=== PATIENT | male | born 1980 | race American Indian/Alaskan Native ===

== ENCOUNTER 2018-07-07 21:58 | Emergency (ER) | payer SELFPAY ==
[2018-07-07 22:28] VITALS: BP 110/87
--- NOTE | 2018-07-08 00:42 | Emergency Department Report ---
ED Back Pain/Injury HPI - General Chief Complaint: Back Pain/Injury Stated Complaint: BACK PAIN Time Seen by Provider: 07/08/18 00:41 Source: patient Limitations: No Limitations - History of Present Illness Initial Comments: Patient is a 38-year-old -[place] male who states he hurt his back 2 days ago at work bending and lifting heavy boxes complains of 5/10 back spasms there is no numbness no tingling or paralysis no loss or decrease in bowel or bladder function patient is ambulatory however prolonged standing exacerbates pain pain is described as spasms patient has not attempted [id number] NSAIDs or pain medications for back MD Complaint: back pain, back injury Onset/Timin -: days(s) Similar Symptoms Previously: Yes Place: work Radiation: none Severity: moderate Severity scale (0 -10): 5 Quality: aching, other (spasms ) Consistency: intermittent Improves With: other (rest ) Worsens With: movement, other (bending twisting proloned sitting ) Context: turning/twisting, bending, other (moving boxes at work ) Associated Symptoms: denies: weakness, numbness, difficulty urinating, incontinence, constipation - Related Data Previous Rx's Medication Instructions Recorded Last Taken Type Cyclobenzaprine [Flexeril] 10 mg PO TID PRN #30 tablet 07/08/18 Unknown Rx Menthol/Camphor [[place] [facility] 1 applicatio TP QID PRN #1 tube 07/08/18 Unknown Rx Ointment] Naproxen 500 mg PO BID PRN #30 tablet 07/08/18 Unknown Rx Allergies Allergy/AdvReac Type Severity Reaction Status Date / Time No Known Allergies Allergy Unverified 07/07/18 22:29 ED Review of Systems ROS: Stated complaint: BACK PAIN Other details as noted in HPI Constitutional: denies: chills, fever Eyes: denies: eye pain, eye discharge, vision change ENT: denies: ear pain, throat pain Respiratory: denies: cough, shortness of breath, wheezing Cardiovascular: denies: chest pain, palpitations Endocrine: no symptoms reported Gastrointestinal: denies: abdominal pain, nausea, diarrhea Genitourinary: denies: urgency, dysuria Musculoskeletal: back pain. denies: joint swelling, arthralgia, myalgia Skin: denies: rash, lesions Neurological: denies: headache, weakness, paresthesias Psychiatric: denies: anxiety, depression Hematological/Lymphatic: denies: easy bleeding, easy bruising ED Past Medical Hx - Past Medical History Previous Medical History?: Yes - Surgical History Past Surgical History?: Yes Hx Appendectomy: Yes (2002) - Social History Smoking Status: Light Tobacco Smoker Substance Use Type: Alcohol - Medications Home Medications: Home Medications Medication Instructions Recorded Confirmed Last Taken Type Cyclobenzaprine [Flexeril] 10 mg PO TID PRN #30 tablet 07/08/18 Unknown Rx Menthol/Camphor [[place] [facility] 1 applicatio TP QID PRN #1 tube 07/08/18 Unknown Rx Ointment] Naproxen 500 mg PO BID PRN #30 tablet 07/08/18 Unknown Rx ED Physical Exam - General Limitations: No Limitations General appearance: alert, in no apparent distress - Head Head exam: Present: atraumatic, normocephalic - Eye Eye exam: Present: normal appearance, PERRL, EOMI Pupils: Present: normal accommodation - ENT ENT exam: Present: mucous membranes moist - Neck Neck exam: Present: normal inspection, full ROM. Absent: tenderness, meningismus, lymphadenopathy, thyromegaly - Respiratory Respiratory exam: Present: normal lung sounds bilaterally. Absent: respiratory distress, wheezes, stridor, chest wall tenderness - Cardiovascular Cardiovascular Exam: Present: regular rate, normal rhythm, normal heart sounds. Absent: systolic murmur, diastolic murmur, rubs, gallop - GI/Abdominal GI/Abdominal exam: Present: soft, normal bowel sounds - Rectal Rectal exam: Present: deferred - Extremities Exam Extremities exam: Present: normal inspection, full ROM, normal capillary refill. Absent: tenderness, pedal edema, joint swelling, calf tenderness - Back Exam Back exam: Present: normal inspection, full ROM, tenderness (right lateral lumbar muscle tenderness to deep palpation ), muscle spasm. Absent: CVA tenderness (R), CVA tenderness (L), paraspinal tenderness, vertebral tenderness, rash noted - Neurological Exam Neurological exam: Present: alert, oriented X3, CN II-XII intact, normal gait, reflexes normal. Absent: motor sensory deficit - Expanded Neurological Exam Expanded Sensory exam: Upper Extremity Light Touch: Normal, Upper Extremity Pin Prick: Normal, Upper Extremity Temperature: Normal, UE 2 Point Discrimination: Normal, Lower Extremity Light Touch: Normal, Lower Extremity Pin Prick: Normal, Lower Extremity Temperature: Normal, LE 2 Point Discrimination: Normal Motor strength exam: RUE: 5, LUE: 5, RLE: 5, LLE: 5 DTR: knee (R): 2+, knee (L): 2+, ankle (R): 2+, ankle (L): 2+ Best Eye Response (Xochitl): (4) open spontaneously Best Motor Response (X[place]itl): (6) obeys commands Best Verbal Response ([place]): (5) oriented Xochitl Total: 15 - Psychiatric Psychiatric exam: Present: normal affect, normal mood - Skin Skin exam: Present: warm, dry, intact, normal color. Absent: rash ED Course Vital Signs 07/07/18 22:23 Temperature 97.6 F Pulse Rate 63 Respiratory 16 Rate Blood Pressure 110/87 O2 Sat by Pulse 100 Oximetry ED Medical Decision Making - Medical Decision Making This is a lumbar strain , plan: NSAIDs, Muscle Relaxants, Analgesic Chavies, follow up with pcp in 2-3 days, pt verbalized agreement and understanding of same. Critical care attestation.: If time is entered above; I have spent that time in minutes in the direct care of this critically ill patient, excluding procedure time. ED Disposition Clinical Impression: Lumbar strain Qualifiers: Encounter type: initial encounter Qualified Code(s): S39.012A - Strain of mus ramonita, fascia and tendon of lower back, initial encounter Disposition: TO HOME OR SELFCARE Is pt being admited?: No Does the pt Need Aspirin: No Condition: Stable Prescriptions: Cyclobenzaprine [Flexeril] 10 mg PO TID PRN #30 tablet PRN Reason: Muscle Spasm Menthol/Camphor [[facility] Ointment] 1 applicatio TP QID PRN #1 tube PRN Reason: pain Naproxen 500 mg PO BID PRN #30 tablet PRN Reason: pain Referrals: PRIMARY CARE,MD [Primary Care Provider] - 3-5 Days Forms: Work/School Release Form(ED) Time of Disposition: 01:10
[2018-07-08] MEDS ORDERED: TORADOL IM ONE (00:43)
== END 2018-07-08 01:18 | disposition home or self-care (01) ==
LOC: ED 21:58
DX: S39.012A Strain of muscle, fascia and tendon of lower back, initial encounter (principal); F17.200 Nicotine dependence, unspecified, uncomplicated; Z90.49 Acquired absence of other specified parts of digestive tract; X50.1XXA Overexertion from prolonged static or awkward postures, initial encounter; Y93.89 Activity, other specified; Y99.0 Civilian activity done for income or pay; Y92.69 Other specified industrial and construction area as the place of occurrence of the external cause
CPT/HCPCS: 96372; 99281; J1885

== ENCOUNTER 2018-07-17 22:54 | Emergency (ER) | payer SELFPAY ==
[2018-07-17 23:23] VITALS: BP 121/84
--- NOTE | 2018-07-18 00:18 | Emergency Department Report ---
ED Back Pain/Injury HPI - General Chief Complaint: Back Pain/Injury Stated Complaint: BACK PAIN Source: patient Limitations: No Limitations - History of Present Illness Initial Comments: This is a 38-year-old -[place] male who presents with low back pain for one week. Patient states he was seen in this emergency room when symptoms initially occurred. He was given pain medication and muscle relaxers which help pain for a few hours. Patient states he caught himself falling while at work one week ago. He was diagnosed with muscle strain. Patient states pain is still 5 out of 10 on pain scale and nonradiating achy sensation. He denies numbness or tingling, paresthesias or weakness, swelling, bruising, frequency, urgency, or dysuria. MD Complaint: back pain Onset/Timin -: week(s) Similar Symptoms Previously: No Place: work Radiation: none Severity: moderate Severity scale (0 -10): 5 Quality: aching Consistency: intermittent Improves With: none Worsens With: movement Context: fall Associated Symptoms: denies: numbness, difficulty urinating, incontinence, fever/chills Treatments Prior to Arrival: prescription analgesics - Related Data Previous Rx's Medication Instructions Recorded Last Taken Type Cyclobenzaprine [Flexeril] 10 mg PO TID PRN #30 tablet 07/08/18 Unknown Rx Menthol/Camphor [[place] 1 applicatio TP QID PRN #1 tube 07/08/18 Unknown Rx Ointment] Naproxen 500 mg PO BID PRN #30 tablet 07/08/18 Unknown Rx Naproxen [Naprosyn] 500 mg PO TID PRN #15 tablet 07/18/18 Unknown Rx Allergies Allergy/AdvReac Type Severity Reaction Status Date / Time No Known Allergies Allergy Unverified 07/07/18 22:29 ED Review of Systems ROS: Stated complaint: BACK PAIN Other details as noted in HPI Constitutional: denies: chills, fever Respiratory: denies: cough, shortness of breath, wheezing Cardiovascular: denies: chest pain, palpitations Gastrointestinal: denies: abdominal pain, nausea, diarrhea Musculoskeletal: back pain. denies: joint swelling, arthralgia Neurological: denies: headache, weakness, paresthesias Psychiatric: denies: anxiety, depression ED Back Pain Physical Exam - Exam General: Vital signs noted. No distress. Alert and acting appropriately. Back/Abdomen: Yes Sacroiliac Tenderness (tenderness above the iliac crest on the left), No Abdominal Tenderness, No Perithoracic Tenderness, No Perilumbar Tenderness, No Flank Tenderness, No Straight Leg Raise Pain Neuro: Yes Normal Sensation, Yes Normal DTR's, Yes Normal Gait, No Motor Weakness ED Course Vital Signs 07/17/18 23:18 Temperature 97.4 F L Pulse Rate 70 Respiratory 18 Rate Blood Pressure 121/84 O2 Sat by Pulse 94 Oximetry ED Medical Decision Making - Radiology Data Radiology results: report reviewed FINAL REPORT EXAM: XR SPINE LUMBOSACRAL 2-3V HISTORY: Low back pain TECHNIQUE: Two views of the lumbar spine: AP and lateral projections. PRIORS: None. FINDINGS: There is no radiographic evidence of acute fracture or subluxation. Osseous mineralization normal. Mild posterior intervertebral disc space narrowing suggested at L5-S1 and subtle endplate degenerat darinel changes at L1-L2 and L2-L3. No spondylolysis or spondylolisthesis. Bowel gas overlies the sacrum limiting evaluation. Possible mild sclerosis of the right inferior sacroiliac joint. IMPRESSION: No acute osseous abnormalities. Mild lumbar degenerative changes. Possible mild right sacroiliitis. Correlation with exam requested. - Medical Decision Making Patient was examined by me. Vitals are normal and patient is in no acute distress. Obtained a urinalysis and x-ray of L-spine. X-rays dictated by radiologist and report reviewed by myself. No acute osseous abnormalities. Mild lumbar degenerative changes. Possible mild right sacroiliitis. Correlation with exam requested. Patient informed of results. Start naproxen for pain. Plan discussed with patient to discharge home and treat outpatient. He agrees with ER plan. Referral to physical therapy. Patient discharged home in stable condition. Follow up with PCP in 2-3 days. Critical care attestation.: If time is entered above; I have spent that time in minutes in the direct care of this critically ill patient, excluding procedure time. ED Disposition Clinical Impression: Sacroiliitis Low back pain Qualifiers: Chronicity: acute Back pain laterality: bilateral Sciatica presence: without sciatica Qualified Code(s): M54.5 - Low back pain Disposition: TO HOME OR SELFCARE Is pt being admited?: No Does the pt Need Aspirin: No Condition: Stable Instructions: Acute Low Back Pain (ED), Sacroiliitis (ED) Additional Instructions: Rest Use ice or heat on affected area for 20 minutes and off for 2 hours. Take pain medication as needed for pain. Follow up with Primary Care Provider in 2-3 days. Prescriptions: Naproxen [Naprosyn] 500 mg PO TID PRN #15 tablet PRN Reason: Pain , Severe (7-10) Referrals: VASILIY SOLIS MD [Primary Care Provider] - 3-5 Days Tomas Neal [Other] - 3-5 Days Forms: Work/School Release Form(ED) Time of Disposition: 01:22 ED Neuro EXAM - Physical Exam General Appearance: no apparent distress
--- NOTE | 2018-07-18 00:49 | XRay Report ---
FINAL REPORT EXAM: XR SPINE LUMBOSACRAL 2-3V HISTORY: Low back pain TECHNIQUE: Two views of the lumbar spine: AP and lateral projections. PRIORS: None. FINDINGS: There is no radiographic evidence of acute fracture or subluxation. Osseous mineralization normal. Mi ld posterior intervertebral disc space narrowing suggested at L5-S1 and subtle endplate degenerative changes at L1-L2 and L2-L3. No spondylolysis or spondylolisthesis. Bowel gas overlies the sacrum limi ting evaluation. Possible mild sclerosis of the right inferior sacroiliac joint. IMPRESSION: No acute osseous abnormalities. Mild lumbar degenerative changes. Possible mild right sacroiliitis. Correlation with exam requested.
== END 2018-07-18 01:30 | disposition home or self-care (01) ==
LOC: ED 22:54
DX: M46.1 Sacroiliitis, not elsewhere classified (principal); M54.5 Low back pain
CPT/HCPCS: 72100; 99283